=== PATIENT | female | born 1950 | race Caucasian/White ===

== ENCOUNTER 2016-05-29 14:09 | Emergency (ER) | payer MEDICARE, OTHER ==
[2016-05-29 16:05] LABS: Hematocrit 34.8 % (37.0-47.0); Hemoglobin 11.2 gm/dL (12.5-16.0); Mean Cell Volume 90.6 fl (78-100); Mean Corpuscular Hemoglobin 29.2 pg (27-31); Mean Corpuscular Hgb Conc 32.2 g/dl (32-36); Mean Platelet Volume 9.4 fl (6.0-9.5); Neutrophil # 2.1 K/mm3 (1.3-6.0); Neutrophil % 62.6 % (42-75.0); Platelet Count 129 K/mm3 (150-450); Red Blood Count 3.84 M/mm3 (4.2-5.4); Red Cell Distribution Width 14.7 % (11.5-14.0); White Blood Count 3.4 K/mm3 (4.0-10.5)
[2016-05-29 16:18] LABS: Anion Gap 14.2 mmol/L (6.8-13.8); BUN/Creatinine Ratio 28.9 (9.0-21.6); Bilirubin, Total 0.4 mg/dL (0.0-1.1); Ca. Corrected For Albumin 8.8 mg/dL (8.4-10.2); Calcium * 8.3 mg/dL (7.9-10.9); Carbon Dioxide 25.9 mmol/L (24-32.6); Potassium 4.1 mmol/L (3.4-4.6); Total Protein 6.9 gm/dL (6.2-8.2)
[2016-05-29] MEDS ORDERED: KETOROLAC TROMETHAMINE 60 MG/2 ML VIAL IM ONE ×2 (16:34→16:39)
[2016-05-29] MEDS ORDERED: oxyCODONE HCL/ACETAMINOPHEN 1 TAB TABLET PO ONE ×2 (16:34→19:04)
[2016-05-29 16:37] LABS: Prothrombin Time (Patient) 10.3 Seconds (9.4-11.4)
[2016-05-29 16:39] LABS: INR 0.99 INR (0.90-1.10); Partial Thrombolplastin Time 22.9 Seconds (24-32)
[2016-05-29] MEDS ORDERED: oxyCODONE HCL/ACETAMINOPHEN 1 TAB TABLET ONE ×2 (16:39→19:10)
[2016-05-29 18:09] LABS: Hematocrit 34.8 % (37.0-47.0); Mean Cell Volume 91.3 fl (78-100); Mean Corpuscular Hemoglobin 28.9 pg (27-31); Mean Corpuscular Hgb Conc 31.6 g/dl (32-36); Mean Platelet Volume 9.8 fl (6.0-9.5); Platelet Count 118 K/mm3 (150-450); Red Blood Count 3.81 M/mm3 (4.2-5.4); Red Cell Distribution Width 14.8 % (11.5-14.0); White Blood Count 3.7 K/mm3 (4.0-10.5)
--- NOTE | 2016-05-29 19:12 | ERNOTE ---
ER Female HPI Date of Service: 05/29/16 Stated Complaint: VAGINAL BLEEDING. PAIN.CANCER Presenting Symptoms: pelvic pain, vaginal bleeding Time Seen by Provider: 05/29/16 15:15 Source: patient Exam Limitations: no limitations Immunizations: IMMUNIZATION HX Immunizations Up to Date Yes History of Influenza Vaccine Yes Hx Pneumococcal Vaccination Yes Allergies/Adverse Reactions: Allergies aspirin Allergy (Verified 05/29/16 14:45) atorvastatin Allergy (Verified 05/29/16 14:45) codeine Allergy (Verified 05/29/16 14:45) furosemide Allergy (Verified 05/29/16 14:45) guaifenesin Allergy (Verified 05/29/16 14:45) iodine Allergy (Verified 05/29/16 14:45) ipratropium Allergy (Verified 05/29/16 14:45) Penicillins Allergy (Verified 05/29/16 14:45) saxagliptin Allergy (Verified 05/29/16 14:45) Home Medications: HOME MEDICATIONS Albuterol Sulfate 5 mg IH DAILY 05/29/16 [Last Taken Unknown] Albuterol Sulfate [Albuterol Sulfate 2.5 MG/0.5ML] 2 vial IH Q4H PRN 05/29/16 [ Last Taken Unknown] Aspirin [Aspirin Chewable] 81 mg PO DAILY 05/29/16 [Last Taken Unknown] Bumetanide 2 mg PO BID 05/29/16 [Last Taken Unknown] Clopidogrel Bisulfate [Plavix] 75 mg PO DAILY 05/29/16 [Last Taken Unknown] Ferrous Sulfate [Iron] 325 mg PO DAILY 05/29/16 [Last Taken Unknown] Furosemide [Lasix] 20 mg PO DAILY 05/29/16 [Last Taken Unknown] Hydroxyzine HCl 50 mg PO QID 05/29/16 [Last Taken Unknown] Insulin Aspart [Novolog] 40 units SC TIDWM 05/29/16 [Last Taken Unknown] Insulin Detemir [Levemir] 2 units SC DAILY 05/29/16 [Last Taken Unknown] Isosorbide Mononitrate [Imdur] 30 mg PO DAILY 05/29/16 [Last Taken Unknown] LORazepam [Ativan] 0.5 mg PO BID PRN 05/29/16 [Last Taken Unknown] Levothyroxine Sodium [Synthroid] 50 mcg PO DAILY 05/29/16 [Last Taken Unknown] Lisinopril [Zestril] 10 mg PO DAILY 05/29/16 [Last Taken Unknown] Loratadine [Claritin] 10 mg PO DAILY 05/29/16 [Last Taken Unknown] Metoprolol Tartrate [Lopressor] 50 mg PO BID 05/29/16 [Last Taken Unknown] Mometasone/Formoterol [Dulera 100 Mcg/5 Mcg Inhaler] 2 puff IH BID 05/29/16 [ Last Taken Unknown] Montelukast Sodium [Singulair] 10 mg PO DAILY 05/29/16 [Last Taken Unknown] Nitroglycerin [Nitrostat] 0.4 mg SL Q5MIN PRN 05/29/16 [Last Taken Unknown] Potassium Chloride [K-Dur] 20 meq PO DAILY 05/29/16 [Last Taken Unknown] Simvastatin [Zocor] 40 mg PO HS 05/29/16 [Last Taken Unknown] Venlafaxine HCl [Effexor Xr] 150 mg PO DAILY 05/29/16 [Last Taken Unknown] oxyCODONE HCL/ACETAMINOPHEN [Percocet 5 MG/325 MG] 1 - 2 tab PO QID PRN #60 tab 05/29/16 [Last Taken Unknown] - History of Present Illness Narrative: Known pelvic cancer, being treated. Vaginal bleeding and pelvic cramping. Vicodin didn't really help. Was in the [facility] yesterday. Wants a hysterectomy, but the oncologist in [place] doesn't want to do it at the [facility], for fear she would not survive the operation. Timing: Present: intermittent Quality: Present: moderate Onset Location: Present: suprapubic Radiation: Present: none Activities at Onset: Present: none Prior Abdominal Problems: Present: similar symptoms Prior Treatment: Present: recently seen, treated by physician. Absent: currently on antibiotics Review of Systems - Review of Systems Constitutional: Present: no symptoms reported EYE: Present: no symptoms reported ENT: Present: no symptoms reported Respiratory: Present: no symptoms reported Cardiology: Present: no symptoms reported Gastrointestinal/Abdominal: Present: no symptoms reported Genitourinary: Present: See HPI Musculoskeletal: Present: no symptoms reported Skin: Present: no symptoms reported Neurological: Present: no symptoms reported Endocrine: Present: no symptoms reported Hematologic/Lymphatic: Present: no symptoms reported Psych: Present: no symptoms reported All Other Systems: All systems neg except as marked - Patient's Past Medical History Patient History - Medical: Diabetes Type 2, Hypothyroidism Patient History - Cancer: Other - cervical and uterine cancer - Social History Living Situations: alone Smoking Status: Current every day smoker Have you smoked in the past 12 months: No Physical Exam - Physical Exam General Appearance: Present: wd/wn, alert, no apparent distress, obese Eye Exam: Normal inspection: bilateral, PERRL: bilateral, EOMI: bilateral Ears, Nose, Throat: Present: normal ENT inspection, hearing grossly normal Neck: Present: normal inspection, nontender Respiratory: Present: no respiratory distress, normal breath sounds Cardiovascular/Chest: Present: regular rate, rhythm, no murmur Gastrointestinal/Abdominal: Present: normal bowel sounds, nontender, nondistended, soft, no organomegaly Back Exam: Present: normal inspection Extremity Exam: Present: normal inspection, pedal edema Neurological Exam: Present: alert, oriented, normal mood/affect Skin Exam: Present: normal color, warm/dry ED Progress - Results and Orders Patient's Lab Results:: I have reviewed the patient's lab results. - I also reviewed the records from [facility] from yesterday - Vital Signs Patient's Vital Signs:: I have reviewed the patient's vital signs. Vital Signs: Vital Signs 05/29/16 05/29/16 05/29/16 14:40 15:38 15:58 Temperature 37.1 C Pulse Rate 100 94 97 Respiratory 14 12 12 Rate Blood Pressure 141/65 158/64 158/64 O2 Sat by Pulse 91 93 96 Oximetry 05/29/16 05/29/16 05/29/16 16:11 16:34 16:45 Temperature Pulse Rate 61 93 88 Respiratory 12 12 12 Rate Blood Pressure 111/64 101/65 123/69 O2 Sat by Pulse 96 90 94 Oximetry 05/29/16 05/29/16 17:07 17:32 Temperature Pulse Rate 88 84 Respiratory 18 12 Rate Blood Pressure 121/67 133/64 O2 Sat by Pulse 95 90 Oximetry - Progress/Reassessment Chief Complaint: Genitourinary Problem Departure Clinical Impression: Vaginal bleeding, Pelvic pain - Departure Disposition: Home self-care Condition: Good Instructions: Abnormal Uterine Bleeding, Pelvic Pain, Female, [id number] Additional Instructions: Followup with your primary care doctor next week. Referrals: [Primary Care Provider] - Prescriptions: oxyCODONE HCL/ACETAMINOPHEN [Percocet 5 MG/325 MG] 1 - 2 tab PO QID PRN #60 tab PRN Reason: Pain
[2016-05-29 19:34] VITALS: BP 120/68
== END 2016-05-29 19:31 | disposition home or self-care (01) ==
LOC: ER 14:09
DX: N93.9 Abnormal uterine and vaginal bleeding, unspecified (principal); R10.2 Pelvic and perineal pain; F17.210 Nicotine dependence, cigarettes, uncomplicated; Z85.41 Personal history of malignant neoplasm of cervix uteri; Z85.42 Personal history of malignant neoplasm of other parts of uterus; E03.9 Hypothyroidism, unspecified; E11.9 Type 2 diabetes mellitus without complications; Z79.4 Long term (current) use of insulin